=== PATIENT | female | born 1985 | race Caucasian/White ===

== ENCOUNTER 2024-11-03 20:48 | Emergency (ER) | payer OTHER ==
[~2024-11-03] VITALS: Ht 167.6 cm; Wt 61.2 kg
[2024-11-03] MEDS ORDERED: IBUPROFEN 600 MG TABLET ONE (21:09)
[2024-11-03] MEDS: IBUPROFEN 600 MG TABLET PO ONE (21:13)
[2024-11-03 21:19] VITALS: BP 120/75; TEMP 98.6; O2SAT 99
== END 2024-11-03 21:21 ==
LOC: ER 20:52
DX: S50.02XA Contusion of left elbow, initial encounter (principal); S20.211A Contusion of right front wall of thorax, initial encounter; Z65.3 Problems related to other legal circumstances; X58.XXXA Exposure to other specified factors, initial encounter; Y93.89 Activity, other specified; Y92.89 Other specified places as the place of occurrence of the external cause; Y99.8 Other external cause status